=== PATIENT | female | born 1995 | race Caucasian/White ===

== ENCOUNTER → 2017-07-03 13:43 | Outpatient (RCR) | payer OTHER ==
[~2017-07-03 13:43] MED LIST: AMOXICILLIN 50500 MG PO; CELEXA; CELEXA10 MG PO; CITALOPRAM10 MG PO; DESYREL 100MG100 MG PO; DIAMOX 250MG250 MG PO; DIAMOX250 MG PO; EXCEDRIN TENSION HA; FLEXERIL 1010 MG/TAB PO; IBUPROFEN200 M1 PO; IMITREX25 MG PO; LAMICTAL; LAMICTAL PO; LISDEXAMFETAMINE; LORTAB 5/500 501 TAB PO; MINOCIN 50M50 MG/CAP PO; NORCO 325 MG-51 TAB PO; PHENERGAN 25 TA25 MG PO; PREVACID 30MG30 M1 PO; RITE AID LICE T59 ML TP; TOPAMAX25 M1 PO; TRAZADONE HYDR100 MG PO; VYVANSE20 MG PO; VYVANSE50 MG PO; [UNRECOGNIZED DRUG - REMARK]
== END | disposition still patient (30) ==
LOC: WSOH 06-26 12:56
DX: S86.011A Strain of right Achilles tendon, initial encounter (principal); R20.0 Anesthesia of skin; R20.2 Paresthesia of skin; W18.42XA Slipping, tripping and stumbling without falling due to stepping into hole or opening, initial encounter; Y99.0 Civilian activity done for income or pay

== ENCOUNTER 2017-09-14 02:02 | Emergency (ER) | payer BC ==
[~2017-09-14] VITALS: Ht 162.6 cm; Wt 116.4 kg
[2017-09-14 02:05] VITALS: TEMP 97.9
[2017-09-14 02:43] LABS: INFLUENZA A NEGATIVE; INFLUENZA B NEGATIVE; STREP SCREEN NEGATIVE
[2017-09-14] MEDS ORDERED: TESSALON PERLE200 MG PO (02:48)
[2017-09-14 02:54] VITALS: BP 131/76; PULSE 74
[2017-09-14] MEDS ORDERED: VITAMIN D3400 I1 PO (15:34)
[2017-09-14] MEDS ORDERED: PROMETHAZINE12.5 M5 PO (17:05)
== END 2017-09-14 02:55 | disposition home or self-care (01) ==
LOC: COL.ER 02:02
PROVIDERS: Nurse Practitioner
DX: J06.9 Acute upper respiratory infection, unspecified (principal); J45.909 Unspecified asthma, uncomplicated

== ENCOUNTER 2017-09-14 15:26 | Emergency (ER) | payer BC ==
[~2017-09-14] VITALS: Ht 162.6 cm; Wt 116.4 kg
[~2017-09-14 15:26] MED LIST changes: +TESSALON PERLE200 MG PO
[2017-09-14] MEDS ORDERED: VITAMIN D3400 I1 PO (15:34)
[2017-09-14 16:31] VITALS: BP 116/62; TEMP 98.4
[2017-09-14] MEDS ORDERED: PROMETHAZINE12.5 M5 PO (17:05)
[2017-09-14 17:12] VITALS: PULSE 90
== END 2017-09-14 17:13 | disposition home or self-care (01) ==
LOC: COL.ER 15:26
DX: R11.10 Vomiting, unspecified (principal); R05 Cough; G43.909 Migraine, unspecified, not intractable, without status migrainosus; F90.9 Attention-deficit hyperactivity disorder, unspecified type; F41.9 Anxiety disorder, unspecified; F32.9 Major depressive disorder, single episode, unspecified
CPT/HCPCS: J2550

== ENCOUNTER 2017-11-16 20:30 | Emergency (ER) | payer BC ==
[~2017-11-16] VITALS: Ht 165.1 cm; Wt 113.6 kg
[~2017-11-16 20:30] MED LIST changes: +PROMETHAZINE12.5 M5 PO; +VITAMIN D3400 I1 PO
[2017-11-16 20:34] VITALS: BP 129/61; TEMP 100.4
[2017-11-16] MEDS ORDERED: MULTIVITAMIN FO1 CAP PO (20:38)
[2017-11-16] MEDS ORDERED: TAMIFLU 75MG75 MG PO (21:48)
[2017-11-16 22:05] VITALS: PULSE 102
== END 2017-11-16 22:05 | disposition home or self-care (01) ==
LOC: COL.ER 20:30
DX: J45.909 Unspecified asthma, uncomplicated (principal); J10.1 Influenza due to other identified influenza virus with other respiratory manifestations

== ENCOUNTER 2019-03-18 17:33 | Emergency (ER) | payer BC ==
[~2019-03-18] VITALS: Ht 162.6 cm; Wt 127.8 kg
[~2019-03-18 17:33] MED LIST changes: +MULTIVITAMIN FO1 CAP PO; +TAMIFLU 75MG75 MG PO
[2019-03-18 18:00] VITALS: TEMP 97.5
[2019-03-18 19:46] LABS: COLLECTION METHOD CLEAN CATCH
[2019-03-18 19:54] LABS: MUCOUS Present /lpf; PH 5 (5-8); SQUAMOUS EPITHELIAL 0-2 /hpf; URINE APPEARANCE Clear; URINE BACTERIA None Seen /hpf; URINE BILIRUBIN Negative (NEGATIVE); URINE BLOOD 1+ (NEGATIVE); URINE COLOR Yellow; URINE GLUCOSE Negative (NEGATIVE); URINE KETONE Trace (NEGATIVE); URINE LEUKOCYTE ESTERASE Negative (NEGATIVE); URINE NITRATE Negative (NEGATIVE); URINE PROTEIN(semi-quant) Negative (NEGATIVE); URINE RBC None Seen /hpf; URINE UROBILINOGEN Negative (NEGATIVE)
[2019-03-18 20:14] LABS: BASO % 0.2 % (0.0-2.0); EOS # 0.2 (0.0-0.7); EOS % 1.6 % (0-4.0); GRAN # 6.9 (1.4-6.5); HEMATOCRIT 41.9 % (37.0-47.0); HEMOGLOBIN 13.7 g/dl (12.5-16.0); LYMPH # 3.8 (1.2-3.4); LYMPH % 32.9 % (20.0-51.0); MEAN CELL VOLUME 85 fl (80.0-100.0); MEAN CORPUSCULAR HEMOGLOBIN 28 pg (27.0-31.0); MEAN CORPUSCULAR HGB CONC 33 g/dl (33.0-37.0); MEAN PLATELET VOLUME 10.5 fl (7.4-10.4); MONO # 0.7 (0.1-0.6); PLATELET COUNT 297 K/mm3 (130-400); RED BLOOD COUNT 4.92 M/mm3 (4.10-5.30); REDCELL DISTRIBUTION WIDTH-CV 12.5 % (11.5-14.5)
[2019-03-18 20:32] LABS: ALBUMIN 4.4 gm/dL (3.5-5.0); BILIRUBIN,TOTAL 0.5 mg/dL (0.0-1.0); C-REACTIVE PROTEIN 1.4 mg/dL (0.0-0.9); CALCIUM 9.4 mg/dL (8.4-10.2); CREATININE, serum 0.54 (0.52-1.25); POTASSIUM 3.9 mmol/L (3.4-5.0); TOTAL PROTEIN 8.6 gm/dL (6.4-8.2)
[2019-03-18 22:10] VITALS: BP 117/78; PULSE 82
== END 2019-03-18 22:10 | disposition home or self-care (01) ==
LOC: COL.ER 17:33
PROVIDERS: Emergency Medicine; Physician Assistant
DX: N83.291 Other ovarian cyst, right side (principal)
CPT/HCPCS: J1885; J2405; J7030; Q9967

== ENCOUNTER 2019-04-02 20:50 | Emergency (ER) | payer SELFPAY ==
[~2019-04-02] VITALS: Ht 162.6 cm; Wt 120.5 kg
[2019-04-02 20:56] VITALS: TEMP 97.1
[2019-04-02 21:11] LABS: COLLECTION METHOD CLEAN CATCH
[2019-04-02 21:26] LABS: MUCOUS Present /lpf; PH 5 (5-8); SQUAMOUS EPITHELIAL 0-2 /hpf; URINE APPEARANCE Clear; URINE BACTERIA None Seen /hpf; URINE BILIRUBIN Negative (NEGATIVE); URINE BLOOD 2+ (NEGATIVE); URINE COLOR Yellow; URINE GLUCOSE Negative (NEGATIVE); URINE KETONE Negative (NEGATIVE); URINE LEUKOCYTE ESTERASE Negative (NEGATIVE); URINE NITRATE Negative (NEGATIVE); URINE PROTEIN(semi-quant) Negative (NEGATIVE); URINE UROBILINOGEN Negative (NEGATIVE)
[2019-04-03 00:46] VITALS: BP 106/57
[2019-04-03 01:59] VITALS: PULSE 79
== END 2019-04-03 02:09 | disposition home or self-care (01) ==
LOC: COL.ER 20:50
PROVIDERS: Emergency Medicine
DX: M54.5 Low back pain (principal); J45.909 Unspecified asthma, uncomplicated
CPT/HCPCS: J2550

== ENCOUNTER 2019-04-25 08:06 | Outpatient (RCR) | payer OTHER | END 2019-05-20 13:18 | disposition home or self-care (01) | LOC: WSOH 08:06 | DX: S33.6XXA Sprain of sacroiliac joint, initial encounter (principal); W03.XXXA Other fall on same level due to collision with another person, initial encounter; Y92.219 Unspecified school as the place of occurrence of the external cause; Y99.0 Civilian activity done for income or pay; Y93.89 Activity, other specified; J45.909 Unspecified asthma, uncomplicated ==

== ENCOUNTER 2019-12-06 20:03 | Emergency (ER) | payer BC ==
[~2019-12-06] VITALS: Ht 165.1 cm; Wt 122.7 kg
[2019-12-06] MEDS ORDERED: MULTI VITAMINS1 TAB PO (20:28)
[2019-12-06 20:45] LABS: STREP SCREEN POSITIVE
[2019-12-06 22:45] VITALS: TEMP 98.5
[2019-12-06 23:07] VITALS: BP 109/48; PULSE 107
[2019-12-06] MEDS ORDERED: AMOXICILLIN 50500 MG PO (23:08)
== END 2019-12-06 23:12 | disposition home or self-care (01) ==
LOC: COL.ER 20:03
PROVIDERS: Emergency Medicine
DX: J02.0 Streptococcal pharyngitis (principal); G43.909 Migraine, unspecified, not intractable, without status migrainosus; J45.909 Unspecified asthma, uncomplicated

== ENCOUNTER → 2020-08-09 | Outpatient (CLI) | payer BC ==
[~2020-08-09] MED LIST changes: +MULTI VITAMINS1 TAB PO
== END ==
LOC: COL.RAD 13:05
DX: R10.32 Left lower quadrant pain (principal); Z87.42 Personal history of other diseases of the female genital tract